=== PATIENT | female | born 1955 | race Caucasian/White ===

== ENCOUNTER → 2017-06-17 | Outpatient (CLI) | payer OTHER ==
[~2017-06-17] MED LIST: BIOTPOW17 PO; CALC-310 PO; CHOL100010 PO; CLX20 PO; MULTTAB58 PO; ZOLE5INJ; [UNRECOGNIZED DRUG - OTHER]; [UNRECOGNIZED DRUG - OTHER]; vitamin b12 PO
--- NOTE | 2017-06-18 15:08 | MAMMOGRAPHY REPORT ---
BILATERAL DIGITAL SCREENING MAMMOGRAM TOMOSYNTHESIS WITH CAD: 06/17/2017 CLINICAL HISTORY: Routine screening. Patient has no complaints. TECHNIQUE: Breast tomosynthesis in addition to standard 2D mammography was performed. Current study was also evaluated with a Computer Aided Detection (CAD) system. COMPARISON: Comparison is made to exams dated: 03/23/2015 mammogram, 07/02/2011 mammogram, 03/21/2010 ultrasound, 03/21/2010 mammogram, 03/14/2010 mammogram - [facility], and 01/28/2008 . BREAST COMPOSITION: The tissue of both breasts is heterogeneously dense, which may obscure small mas ses. FINDINGS: There are diffuse bilateral punctate microcalcifications and a few benign rim calcification s in the breasts. Minimal vascular calcification as well. Stable asymmetry in the far posterior lef t breast, along the posterior nipple line on the CC view. No new suspicious mass, architectural dist ortion or cluster of microcalcifications is seen. IMPRESSION: ACR BI-RADS CATEGORY 1: NEGATIVE There is no mammographic evidence of malignancy. A 1 year screening mammogram is recommended. The pa tient will receive written notification of the results. Approximately 10% of breast cancers are not detected with mammography. A negative mammographic report should not delay biopsy if a clinically suggestive mass is present. Shira Manning M.D. ay/:06/17/2017 16:35:59 Scrap Preparer: Corrina PAYNE)(Josh), [facility] letter sent: Normal 1/2 BI-RADS Code: ACR BI-RADS Category 1: Negative
== END | disposition home or self-care (01) ==
LOC: C.MAMM 11:09
PROVIDERS: ATTEND Internal Medicine
DX: Z12.31 Encounter for screening mammogram for malignant neoplasm of breast (principal); M81.0 Age-related osteoporosis without current pathological fracture; M85.89 Other specified disorders of bone density and structure, multiple sites

== ENCOUNTER → 2017-07-17 | Outpatient (CLI) | payer OTHER ==
--- NOTE | 2017-07-17 13:31 | DIAGNOSTIC IMAGING REPORT ---
L SHOULDER MIN 2 VIEWS CLINICAL HISTORY: 61 years-old Female presenting with LEFT SHOULDER PAIN. TECHNIQUE: Frontal, transscapular Y, and axillary views of the left shoulder were obtained. COMPARISON: Chest x-ray from 01/23/2014. FINDINGS: Glenohumeral and acromioclavicular joints congruent. No subluxation of the humeral head. Normal morphology of the acromion. No acute fracture or malalignment. No advanced degenerative change. No radiographic soft tissue abnormality. Visualized portion of the left hemithorax normal. IMPRESSION: No acute osseous injury. Electronically signed by: Jesús Conley M.D. 07/17/2017 1:30 PM Dictated Date/Time: 07/17/2017 1:06 PM
== END | disposition home or self-care (01) ==
LOC: C.RDSM 12:57
PROVIDERS: ATTEND Family Medicine
DX: M25.512 Pain in left shoulder (principal)